=== PATIENT | female | born 1980 ===

== ENCOUNTER 2017-07-07 12:01 | Emergency (ER) | payer OTHER ==
[2017-07-07 12:17] VITALS: BP 126/87; PULSE 89; RESP 16; TEMP 97; O2SAT 99
--- NOTE | 2017-07-07 13:38 | ED PDOC ---
Upper Extremity Pain/Injury Time Seen by Provider: 07/07/17 13:14 Chief Complaint (Nursing): Upper Extremity Problem/Injury Chief Complaint (Provider): Laceration to Hand History Per: Patient History/Exam Limitations: no limitations Current Symptoms Are (Timing): Still Present Additional Complaint(s): Letty Martinez, a 37 year old female, presents to the ED for a laceration to the the right ulnar side of her hand. The patient states that on June 25 she sustained a laceration to her hand and had it repaired at [facility]. She states that the wound never healed well. The patient reports that she was told to follow up with a plastic surgeon but because it is a workers comp injury and her place of employment refuses to pay the plastic surgeon refused to see her due to lack of insurance. She states that the wound is not healing and admits to pain with movement. Denies drainage, fevers, chills. Past Medical History Reviewed: Historical Data, Nursing Documentation, Vital Signs Vital Signs: Last Vital Signs Temp 97.0 F L 07/07/17 12:13 Pulse 89 07/07/17 12:13 Resp 16 07/07/17 12:13 BP 126/87 07/07/17 12:13 Pulse Ox 99 07/07/17 12:13 - Medical History PMH: No Chronic Diseases - Surgical History Surgical History: Cholecystectomy - Family History Family History: States: Unknown Family Hx - Immunization History Hx Tetanus Toxoid Vaccination: No Hx Influenza Vaccination: No Hx Pneumococcal Vaccination: No - Home Medications Home Medications: Ambulatory Orders Medication Instructions Recorded Ciprofloxacin [Cipro] 1 tab PO BID #20 tab 09/09/15 Metronidazole [Flagyl] 500 mg PO BID #20 tab 09/09/15 Naproxen [Naprosyn] 1 tab PO BID PRN #25 tab 09/09/15 Amoxicillin/Clavulanate [Augmentin 1 tab PO BID #14 tab 07/07/17 875 MG-125 MG] - Allergies Allergies/Adverse Reactions: Allergies Allergy/AdvReac Type Severity Reaction Status Date / Time No Known Allergies Allergy Verified 09/09/15 19:43 Review of Systems Constitutional: Negative for: Fever, Chills Musculoskeletal: Positive for: Hand Pain (Laceration to right hand), Other Physical Exam - Reviewed Nursing Documentation Reviewed: Yes Vital Signs Reviewed: Yes - Physical Exam Appears: Positive for: Well, Non-toxic, No Acute Distress Head Exam: Positive for: ATRAUMATIC, NORMAL INSPECTION, NORMOCEPHALIC Skin: Positive for: Normal Color, Warm, Dry Eye Exam: Positive for: Normal appearance, EOMI, PERRL Extremity: Positive for: Normal ROM (Full ROM to hand), Other (non healing old laceration with good tissue noted; There is no swelling around hand; no erythema ; no redness; no drainage. ). Negative for: Tenderness, Deformity, Swelling Neurologic/Psych: Positive for: Alert, Oriented, Other (neurovascularly intact) - ECG O2 Sat by Pulse Oximetry: 99 (RA) Pulse Ox Interpretation: Normal Medical Decision Making Medical Decision Makin Initial Impression: 37 year old female presenting with laceration to right hand Patient received [facility] care today and when approved she is advised to follow up with clinic. Patient given wound care instruction in the ED. Steri strips applied. Instructed to follow up with PMD. Scribe Attestation Documented by Payal Cerrato acting as a scribe for Genesis Barnes PA-C. Scribe Attestation All medical record entries made by the Scribe were at my direction and personally dictated by me. I have reviewed the chart and agree that the record accurately reflects my personal performance of the history, physical exam, medical decision making, and the department course for this patient. I have also personally directed, reviewed, and agree with the discharge instructions and disposition. Disposition - Clinical Impression Clinical Impression: Laceration - Disposition Referrals: [facility] [Outside] [facility] [Outside] Disposition Time: 15:06 Condition: STABLE Prescriptions: Amoxicillin/Clavulanate [Augmentin 875 MG-125 MG] 1 tab PO BID #14 tab Instructions: Chronic Wound Care (ED), Steristrips (ED) Forms: [employer] (Persian) Print Language: SLOVENIAN
== END 2017-07-07 13:36 | disposition home or self-care (01) ==
LOC: H.ER 12:01
DX: S61.411D Laceration without foreign body of right hand, subsequent encounter (principal); X58.XXXD Exposure to other specified factors, subsequent encounter; Y92.69 Other specified industrial and construction area as the place of occurrence of the external cause; Y99.8 Other external cause status